=== PATIENT | female | born 1970 | race African-American/Black ===

== ENCOUNTER → 2017-10-26 | Outpatient (CLI) | payer BC | LOC: MC.RAD 10-25 14:00 | DX: Z12.31 Encounter for screening mammogram for malignant neoplasm of breast (principal) ==

== ENCOUNTER 2018-02-22 13:27 | Emergency (ER) | payer OTHER, BC ==
[~2018-02-22] VITALS: Ht 170.2 cm; Wt 102.8 kg
[2018-02-22 13:31] VITALS: BP 204/88; TEMP 97.4
[2018-02-22] MEDS ORDERED: MULTIPLE VITAMI1 CAP PO (14:14)
[2018-02-22] MEDS ORDERED: PROFERRIN ES12 MG PO (14:14)
[2018-02-22] MEDS ORDERED: FLEXERIL 1010 MG/TAB PO (14:50)
[2018-02-22 15:21] VITALS: PULSE 68
== END 2018-02-22 17:25 | disposition home or self-care (01) ==
LOC: COL.ER 13:27
DX: S16.1XXA Strain of muscle, fascia and tendon at neck level, initial encounter (principal); V43.62XA Car passenger injured in collision with other type car in traffic accident, initial encounter; Z90.710 Acquired absence of both cervix and uterus

== ENCOUNTER → 2018-11-11 | Outpatient (CLI) | payer BC ==
[~2018-11-11] MED LIST: FLEXERIL 1010 MG/TAB PO; MULTIPLE VITAMI1 CAP PO; PROFERRIN ES12 MG PO
== END ==
LOC: MC.RAD 09:10
DX: Z12.31 Encounter for screening mammogram for malignant neoplasm of breast (principal)

== ENCOUNTER → 2020-09-14 | Outpatient (CLI) | payer BC | LOC: MC.RAD 08:45 | DX: Z12.31 Encounter for screening mammogram for malignant neoplasm of breast (principal) ==

== ENCOUNTER → 2021-09-23 | Outpatient (CLI) | payer BC | LOC: MC.RAD 07:15 | DX: Z12.31 Encounter for screening mammogram for malignant neoplasm of breast (principal) ==